=== PATIENT | female | born 1970 | race Caucasian/White ===

== ENCOUNTER 2017-06-02 16:30 | Emergency (ER) | payer OTHER, MEDICAID ==
[~2017-06-02] VITALS: Ht 167.6 cm; Wt 70.3 kg
[~2017-06-02 16:30] MED LIST: B-100 COMPLEX1 EAC1; CALCIUM + VIT1 EACH; CLONAZEPAM; CLONAZEPAM 0.50.5 M1; CYCLOBENZAPRINE10 MG; MULTIVITAMINS1 EAC7; NIACIN 500 MG500 M1; OMEGA-31000 M1; OXYCODONE-ACET1 EACH; PHENERGAN 25 MG25 M1 PO; PROPRANOLOL 4040 MG; PROVENTIL HFA6.7 G1; RESTORIL; TRAMADOL 50 MG50 MG; VALIUM5 MG PO; VICODIN; VITAMIN D1000 UNI1; ZYRTEC10 M2
[2017-06-02] MEDS ORDERED: RIZATRIPTAN10 MG PO (16:50)
[2017-06-02] MEDS ORDERED: AZITHROMYCIN 2250 MG PO (16:51)
[2017-06-02 17:20] LABS: INFLUENZA A ANTIGEN None Detected (None Detect); INFLUENZA B ANTIGEN None Detected (None Detect)
[2017-06-02 17:23] LABS: URINE BILIRUBIN NEGATIVE (Negative); URINE BLOOD TRACE (Negative); URINE CLARITY CLEAR; URINE COLOR YELLOW; URINE GLUCOSE-RANDOM NEGATIVE (Negative); URINE KETONES NEGATIVE (Negative); URINE LEUKOCYTES-REFLEX NEGATIVE (Negative); URINE NITRITE-REFLEX NEGATIVE (Negative); URINE PROTEIN NEGATIVE (Negative); URINE UROBILINOGEN 0.2 E.U./dl (0.2-1.0)
[2017-06-02 17:31] LABS: AMP/METHAMP Negative (Negative); BARBITURATES Negative (Negative); BENZODIAZEPINES Negative (Negative); COCAINE Negative (Negative); METHADONE Negative (Negative); OPIATES POSITIVE (Negative); PCP Negative (Negative); THC POSITIVE (Negative)
[2017-06-02 17:52] LABS: ABSOLUTE MONOCYTES 0.5 thou/uL (0.0-1.2); ABSOLUTE NEUTROPHILS 7.3 thou/uL (1.6-8.1); BASOPHILS 0.3 %; HEMATOCRIT 43.3 % (37.0-47.0); HEMOGLOBIN 14.5 gm/dL (12.0-15.0); LYMPHOCYTES 20.5 %; MCH 29.5 pg (26.0-34.0); MCHC 33.5 g/dL (28.0-37.0); MCV 88.1 fL (80.0-100.0); MONOCYTES 5.2 %; NUCLEATED RBCS 0 /100WBC; PLATELET COUNT* 325 thou/uL (150-400); RBC 4.91 mil/uL (4.20-5.00); RDW-CV 13.4 % (10.5-14.5); WBC 9.9 thou/uL (4.0-11.0)
[2017-06-02 18:00] LABS: CALCIUM 9.1 mg/dL (8.5-10.1); CREATININE 0.8 mg/dL (0.6-1.3); POTASSIUM 4.1 mmol/L (3.5-5.1)
[2017-06-02 18:04] LABS: ALBUMIN 4.1 g/dL (3.4-5.0); TOTAL BILIRUBIN 0.3 mg/dL (<0.1-1.0); TOTAL PROTEIN 7.3 g/dL (6.4-8.2)
[2017-06-02] MEDS ORDERED: AFRIN15 ML NASAL (18:42)
[2017-06-02] MEDS ORDERED: TORADOL 10 MG T10 MG PO (18:42)
[2017-06-02] MEDS ORDERED: AUGMENTIN 875-1 EACH PO (18:42)
[2017-06-02] MEDS ORDERED: MEDROLDOSEPACK PO (18:42)
[2017-06-02 18:52] VITALS: BP 106/67
== END 2017-06-02 18:53 | disposition home or self-care (01) ==
LOC: M.ERS 16:30
PROVIDERS: Physician Assistant
DX: J32.9 Chronic sinusitis, unspecified (principal); Z85.828 Personal history of other malignant neoplasm of skin; Z77.22 Contact with and (suspected) exposure to environmental tobacco smoke (acute) (chronic)

== ENCOUNTER 2018-09-11 16:01 | Emergency (ER) | payer OTHER, MEDICAID ==
[~2018-09-11] VITALS: Ht 170.2 cm; Wt 72.6 kg
[~2018-09-11 16:01] MED LIST changes: +AFRIN15 ML NASAL; +AUGMENTIN 875-1 EACH PO; +AZITHROMYCIN 2250 MG PO; -CLONAZEPAM 0.50.5 M1; +CLONAZEPAM 0.50.5 M1 PO; +MEDROLDOSEPACK PO; +RIZATRIPTAN10 MG PO; +TORADOL 10 MG T10 MG PO
[2018-09-11 16:20] LABS: ABSOLUTE BASOPHILS 0.1 thou/uL (0.0-0.2); ABSOLUTE EOSINOPHILS 0.1 thou/uL (0.0-0.7); ABSOLUTE LYMPHOCYTES 2.5 thou/uL (0.8-5.3); ABSOLUTE MONOCYTES 0.4 thou/uL (0.0-1.2); ABSOLUTE NEUTROPHILS 4.3 thou/uL (1.6-8.1); BASOPHILS 0.8 %; EOSINOPHILS 1.9 %; HEMATOCRIT 40.5 % (37.0-47.0); HEMOGLOBIN 13.6 gm/dL (12.0-15.0); LYMPHOCYTES 33.7 %; MCH 29.4 pg (26.0-34.0); MCHC 33.6 g/dL (28.0-37.0); MCV 87.7 fL (80.0-100.0); MONOCYTES 5.5 %; MPV 7.9 fl. (7.2-11.1); NUCLEATED RBCS 0 /100WBC; PLATELET COUNT* 277 thou/uL (150-400); POLYS 58.1 %; RBC 4.62 mil/uL (4.20-5.00); RDW-CV 13.4 % (10.5-14.5); WBC 7.5 thou/uL (4.0-11.0)
[2018-09-11 16:34] LABS: URINE BILIRUBIN NEGATIVE (Negative); URINE BLOOD 3+ (Negative); URINE CLARITY CLEAR; URINE COLOR YELLOW; URINE GLUCOSE-RANDOM NEGATIVE (Negative); URINE KETONES NEGATIVE (Negative); URINE LEUKOCYTES-REFLEX NEGATIVE (Negative); URINE NITRITE-REFLEX NEGATIVE (Negative); URINE PROTEIN TRACE (Negative); URINE UROBILINOGEN 0.2 E.U./dl (0.2-1.0)
[2018-09-11 16:44] LABS: APTT 27.9 Seconds (25.0-31.3); PROTIME 10.3 Seconds (9.20-11.50)
[2018-09-11 16:46] LABS: CALCIUM 9.1 mg/dL (8.5-10.1); CREATININE 0.8 mg/dL (0.6-1.3); POTASSIUM 3.7 mmol/L (3.5-5.1)
[2018-09-11 16:50] LABS: ALBUMIN 3.9 g/dL (3.4-5.0); TOTAL BILIRUBIN 0.3 mg/dL (<0.1-1.0); TOTAL PROTEIN 6.9 g/dL (6.4-8.2)
[2018-09-11 16:52] LABS: CASTS None Seen /LPF (None Seen); CRYSTALS None Seen /LPF (None Seen); SQUAMOUS >10 Many /LPF (0-3)
[2018-09-11 16:53] LABS: URINE RBC >20 Many /HPF (0-2); URINE WBC-REFLEX 0-5 Rare /HPF (0-5)
[2018-09-11] MEDS ORDERED: IBUPROFEN 800800 M1 PO (18:20)
[2018-09-11 18:31] VITALS: BP 111/70
== END 2018-09-11 18:32 | disposition home or self-care (01) ==
LOC: M.ERS 16:01
PROVIDERS: Nurse Practitioner Psychiatric/Mental Health
DX: N92.4 Excessive bleeding in the premenopausal period (principal); G62.9 Polyneuropathy, unspecified; M79.7 Fibromyalgia; G43.909 Migraine, unspecified, not intractable, without status migrainosus; Z90.89 Acquired absence of other organs; Z85.828 Personal history of other malignant neoplasm of skin; Z77.22 Contact with and (suspected) exposure to environmental tobacco smoke (acute) (chronic)